=== PATIENT | male | born 1950 | race Caucasian/White ===

== ENCOUNTER 2021-10-18 09:31 | Day surgery (SDC) | payer MEDICARE, OTHER ==
[2021-10-11 17:52] VITALS: BMI 21.2
[~2021-10-18 09:31] MED LIST: DEXAMETHASONE SOD PHOSPHATE 4 MG/ML 1 ML VIAL IV ONE; FAMOTIDINE 20 MG/2 ML VIAL IV PRN; HYDROmorphone 0.5 MG/0.5 ML SYRINGE IVP PRN; LACTATED RINGERS 1,000 ML IV SCH; LIDOCAINE 1% (10MG/ML) FOR IV START INTRADERMA PRN; METOCLOPRAMIDE 5 MG/ML 2 ML VIAL IVP PRN; ONDANSETRON 4 MG/2 ML VIAL IVP ONE; Pre Op ABX Message 1 EACH MISC MISCELLANE ONE
[2021-10-18] MEDS ORDERED: ONDANSETRON 4 MG/2 ML VIAL IVP ONE (10:15)
[2021-10-18] MEDS ORDERED: DEXAMETHASONE SOD PHOSPHATE 4 MG/ML 1 ML VIAL IVP ONE (10:16)
[2021-10-18] MEDS ORDERED: fentaNYL (PF) 50 MCG/ML 2 ML AMP ONE (11:46)
[2021-10-18] MEDS ORDERED: ePHEDrine 50 MG/ML 1 ML AMP ONE (11:46)
[2021-10-18] MEDS ORDERED: MIDAZOLAM 2 MG/2 ML VIAL ONE (11:46)
[2021-10-18] MEDS ORDERED: PROPOFOL 10 MG/ML 20 ML VIAL IV ONE (11:46)
[2021-10-18] MEDS ORDERED: LIDOCAINE 1% INJ 10MG/ML (20 ML MDV) ONE (11:46)
[2021-10-18] MEDS ORDERED: SUCCINYLCHOLINE CHLORIDE 100 MG/5 ML SYR IV ONE (11:46)
[2021-10-18] MEDS ORDERED: LIDOCAINE 1%-EPI 1:100,000 20 ML VIAL SQ ONE ×2 (12:25)
[2021-10-18] MEDS ORDERED: FERRIC SUBSULFATE (MONSELS) JAR TOPICAL ONE (12:26)
[2021-10-18] MEDS ORDERED: BACITRACIN ZINC 500 UNIT/GM OINT 28.4 GM TUBE TOPICAL ONE (12:48)
[2021-10-18 13:06] VITALS: TEMP 97
[2021-10-18 13:14] VITALS: RESP 16
--- NOTE | 2021-10-18 13:20 | P.OP ---
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 Shave excision of a right preauricular, left preauricular and left upper lip lesion all measuring approximately 1.7 cm each Anesthesia: GETA Surgeon: Mayco Franklin Estimated Blood Loss (ml): 5 Pathology: other (As above) Condition: stable Disposition: PACU Indications for Procedure: Patient had several lesions that he elected to have removed one in the right ear is friable suspicious and appears to represent a keratoacanthoma other lesions were scheduled for surgical removal for excision and biopsy purposes. Operative Findings: Margins are negative for tumor Description of Procedure: The patient underwent a general inhalation anesthetic by the department of anesthesia and was monitored throughout the entire case by the department of anesthesia. The face was sterilely prepped and draped in usual fashion and the right ear lesion was excised with a 15 blade delicate plastic scissors and a Brown-Adson forceps. Sent for frozen section and the margins were negative for tumor. We did extensive undermining in all directions we removed nory's triangles and developed a bilateral advancement flap closure to close his anterior auricular defect. We closed this with Monocryl deeply and a 4 and 50 rapid Vicryl in an interrupted and running fashion. We then did a shave excision of a right preauricular left upper lip and left preauricular lesion. We utilized Monsel for hemostasis. The patient tolerated this well. Dressings were applied and follow-up is scheduled.
[2021-10-18 13:52] VITALS: BP 123/72; PULSE 5
== END 2021-10-18 14:11 | disposition home or self-care (01) ==
LOC: OR 09:31
PROVIDERS: ATTEND Otolaryngology
DX: C44.222 Squamous cell carcinoma of skin of right ear and external auricular canal (principal)
CPT/HCPCS: 69110; 88305; 88331; 88332; J2250; J1100; J2405; J2001; J3010; J0330; J2704